=== PATIENT | male | born 1970 | race Caucasian/White ===

== ENCOUNTER → 2025-02-09 09:15 | Outpatient (CLI) | payer OTHER | END | disposition home or self-care (01) | LOC: NUCLEAR 09:15 | PROVIDERS: ATTEND Internal Medicine Gastroenterology | DX: K82.9 Disease of gallbladder, unspecified (principal) ==

== ENCOUNTER 2025-04-07 21:28 | Emergency (ER) | payer OTHER ==
[~2025-04-07] VITALS: Ht 170.2 cm; Wt 68.0 kg
[2025-04-07] MEDS ORDERED: INDERAL XL120 MG PO (21:59)
[2025-04-08] MEDS ORDERED: CLINDAMYCIN PHOSPHATE 150 MG/ML (600mg) IM STA (02:21)
== END 2025-04-08 02:33 | disposition home or self-care (01) ==
LOC: ER 21:28
DX: L03.818 Cellulitis of other sites (principal); Z88.0 Allergy status to penicillin

== ENCOUNTER 2025-05-10 08:00 | Day surgery (SDC) | payer OTHER ==
[2025-05-05 09:52] LABS: BASO % 0.4 % (0.1-1.2); EOS # 0.14 (0.04-0.54); EOS % 2.1 % (0.7-7.0); LYMPH # 2.22 (1.18-3.74); LYMPH % 33.1 % (19.3-53.1); MEAN PLATELET VOLUME 9.30 fl (9.4-12.4); MONO # 0.93 (0.24-0.82); NEUT # 3.36 (1.56-6.13); NEUT % 50.2 % (34.0-71.1); RED CELL DISTRIBUTION WIDTH 13.2 % (11.6-14.4)
[2025-05-05 09:56] LABS: URINE APPEARANCE Clear; URINE BILIRRUBIN Negative (NEGATIVE); URINE BLOOD Negative; URINE COLOR Yellow; URINE GLUCOSE Negative (NEGATIVE); URINE KETONE Negative (NEGATIVE); URINE LEUKOCYTE Negative; URINE NITRATE Negative; URINE PROTEIN Negative (NEGATIVE); URINE UROBILINOGEN 0.2 E.U./dl
[2025-05-05 09:57] LABS: MONO % 13.9 % (4.7-12.5)
[2025-05-05 10:02] LABS: URINE RBC 6.1 uL (0.0-20.8)
[2025-05-05 10:11] VITALS: BP 120/74
[2025-05-05 10:16] LABS: URINE BACTERIA 1.2 uL (0.0-1933); URINE CAST 0.00 uL (0.0-1.40); URINE EPITHELIAL CELLS 0.6 uL (0.0-38.8); URINE WBC 1.5 uL (0.0-23.2)
[2025-05-05 10:25] LABS: INR 1.01
[2025-05-05 10:38] LABS: ALT/SGPT 26.0 U/L (12-78); AST/SGOT 14.0 U/L (15-37); BILIRUBIN TOTAL 0.59 mg/dL (0.3-1.2); BUN CREA RATIO 22.0 (7.0-25.0); CREATININE SERUM 0.83 mg/dL (0.70-1.30); GFR 95.84; GLOBULINA 3.2 G/DL (2.4-3.5); GLUCOSE FASTING 95.0 mg/dL (65-100); OSMOLALITY SERUM 287.0 MOSM/KG (275-295)
[~2025-05-10] VITALS: Ht 170.2 cm; Wt 68.0 kg
[~2025-05-10 08:00] MED LIST: INDERAL XL120 MG PO
== END 2025-05-10 15:15 | disposition home or self-care (01) ==
LOC: CIR.AMB 08:00
PROVIDERS: ATTEND Surgery
DX: K80.10 Calculus of gallbladder with chronic cholecystitis without obstruction (principal); Z88.0 Allergy status to penicillin